=== PATIENT | female | born 1995 ===

== ENCOUNTER 2019-04-26 06:13 | Outpatient (CLI) | payer SELFPAY ==
[2019-04-26] MEDS ORDERED: LACTATED RINGERS 500 ML IV ONE (08:08)
[2019-04-26 08:38] VITALS: BP 116/72
== END 2019-04-26 08:10 | disposition home or self-care (01) ==
LOC: NM 06:13 → TRG 06:19 → NM 08:10
PROVIDERS: ATTEND Obstetrics & Gynecology
DX: O42.913 Preterm premature rupture of membranes, unspecified as to length of time between rupture and onset of labor, third trimester (principal); Z3A.32 32 weeks gestation of pregnancy

== ENCOUNTER 2019-06-19 01:52 | Inpatient (IN) | payer SELFPAY ==
[2019-06-19] MEDS ORDERED: LIDOCAINE (2%) 20 MG/1 ML VIAL 20 ML MDV INFILTRATI ONE (02:06)
[2019-06-19] MEDS ORDERED: TERBUTALINE 1 MG/1 ML INJ SUB-Q PRN (02:06)
[2019-06-19] MEDS ORDERED: ePHEDrine SULFATE 50 MG/1 ML INJ IV PRN (02:06)
[2019-06-19] MEDS ORDERED: AMPICILLIN/NS 2 GM/100 ML 2 GM/100 ML BAG IV ONE (02:06)
--- NOTE | 2019-06-19 02:21 | History and Physical Report ---
History of Present Illness Date of examination: 06/12/19 Date of admission: 06/19/2019 Chief complaint: Contractions History of present illness: 24 year old presents with contractions. Patient denies leaking of fluid or vaginal bleeding. Patient received care at [facility] and records are available. LMP: unknown. EDC 06/20/2019. significant for the following: anemia (supplemented with oral iron), elevated 1 hour sugar test (normal 3 hour OGTT), + GBS, ASCUS pap. labs are as follows: O+, antibody screen negative, rubella immune, hepatitis B surface antigen negative, HIV negative, RPR nonreactive, gonorrhea negative, chlamydia negative, quad screen negative, 1 hour sugar test 161, normal 3 hour OGTT, GBS positive. 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 denies: chlamydia, gonorrhea, hepatitis B, herpes, HIV, syphilis, trichomonas Family/Genetic History: none Social history: lives with family, full code. denies: smoking, alcohol abuse, prescription drug abuse, IV drug use - Obstetrical History Expected Date of Delivery: 06/20/19 Actual Gestation: 39 Week(s) 6 Day(s) : 3 Para: 1 Hx # Term Pregnancies: 1 Number of Pregnancies: 0 Spontaneous Abortions: 1 Induced : 0 Number of Living Children: 1 Medications and Allergies Allergies Allergy/AdvReac Type Severity Reaction Status Date / Time No Known Allergies Allergy Unverified 08/08/13 03:11 Home Medications Medication Instructions Recorded Confirmed Last Taken Type Mv-Mn/Iron/FA/Herbal/Digestive 1 tab PO DAILY 08/08/13 01/01/14 08/07/13 09:00 History [ One Tablet] Ferrous Sulfate [Feosol 325 MG tab] 325 mg PO BID #60 tablet 01/02/14 Unknown Rx HYDROcodone/APAP 5-325 [Donie 1 each PO Q6HR PRN #30 tablet 01/02/14 Unknown Rx 5/325] Ibuprofen [Advil 100 MG tab] 200 mg PO Q6H PRN #30 tablet 01/02/14 Unknown Rx Active Meds: Active Medications Ephedrine Sulfate (Ephedrine Sulfate) 10 mg IV Q2M PRN PRN Reason: Hypotension Fentanyl (Sublimaze) 100 mcg IV Q2H PRN PRN Reason: Labor Pain Oxytocin/Sodium Chloride (Pitocin/Ns 20 Unit/1000ml Drip) 20 units in 1,000 mls @ 125 mls/hr IV DIRECT DANILO Lactated Ringer's (Lactated Ringers) 1,000 mls @ 125 mls/hr IV DIRECT DANILO Ampicillin Sodium (Ampicillin/Ns 2 Gm/100 Ml) 2 gm in 100 mls @ 100 mls/hr IV ONCE ONE; Protocol Stop: 06/19/19 03:05 Ampicillin Sodium (Ampicillin/Ns 1 Gm/50 Ml) 1 gm in 50 mls @ 100 mls/hr IV Q4HR DANILO; Protocol Terbutaline Sulfate (Brethine) 0.25 mg SUB-Q ONCE PRN PRN Reason: Hyperstimulation/Hypertonicity Review of Systems All systems: negative (contractions) - Physical Exam Abdomen: Positive: normal appearance, soft. Negative: distention, tenderness, guarding, rigidity Genitourinary (Female): Positive: normal external genitalia, normal perenium. Negative: perineal/vulvar lesions (no lesions seen on careful exam with bright light upon admission) Vagina: Positive: normal moisture Uterus: Positive: other (gravid). Negative: tender Anus/Rectum: Positive: normal perianal skin Extremities: Positive: normal. Negative: tenderness, edema - Obstetrical FHR: category 1 Uterine Contraction Monitor Mode: External Cervical Dilatation: 5 Cervical Effacement Percentage: 70 station: -3 Uterine Contraction Pattern: Regular Uterine Contraction Intensity: Moderate Results Result Diagrams: 06/19/19 02:00 All other labs normal. Assessment and Plan A: at 39 weeks, 6 days. Active labor. GBS positive. P: Admit. EFM. GBS prophylaxis.
[2019-06-19 02:28] LABS: Hemoglobin 11.6 gm/dl (10.1-14.3); Mean Corpuscular HGB Conc 33 % (30-34); Mean Corpuscular Volume 70 fl (79-97); Platelet Count 204 K/mm3 (140-440); Red Cell Distribution Width 15.4 % (13.2-15.2)
[2019-06-19] MEDS ORDERED: OXYTOCIN 20 UNIT/1000ML DRIP 20 UNITS/1,000 ML BAG IV SCH (03:00)
[2019-06-19] MEDS: LACTATED RINGERS 1,000 ML IV SCH ×2 (03:20→10:38)
[2019-06-19] MEDS: fentaNYL 100 MCG/2 ML INJ IV PRN ×3 (05:05→09:37)
[2019-06-19] MEDS: AMPICILLIN/NS 1 GM/50 ML 1 GM/50 ML BAG IV SCH ×2 (06:50→11:23)
--- NOTE | 2019-06-19 08:28 | Event Note ---
Date: 06/19/19 SVE /-3. Category 1 heart rate tracing.
[2019-06-19] MEDS ORDERED: LIDOCAINE MPF (2%) 20 MG/1 ML VIAL 5 ML ONE (11:21)
[2019-06-19] MEDS ORDERED: MINERAL OIL 30 ML ORAL LIQD ONE (11:22)
--- NOTE | 2019-06-19 13:20 | Event Note ---
<KENTRELL SANDRA - Last Filed: 06/19/19 13:50> Date: 06/19/19 Cervix is now 9.5 cm and head is -1 to -2 station. Still OP position. FHR with normal baseline and moderate variability. Variable FHR decelerations with rapid return to baseline. Contractions every 2-3 minutes, moderate to strong. Uterus palpates soft between contractions. Consulted with Dr. Smith re: patient's slow progress in labor and FHR tracing/variable decels and cervical exam/ station at 13:18 and again at 13:29; requested physician come in due to FHR tracing and slow labor progress. Pt. continues to refuse epidural. <GABRIELLA SMITH - Last Filed: 06/19/19 14:35> I was told that the variability was good and there was good recovery to the variable decels. As a result, I advised to hold off on AROM until FHT was more stable. PT ended up delivering soon after anyway.
[2019-06-19] MEDS ORDERED: WITCH HAZEL/ GLYCERIN PAD TP PRN (14:15)
[2019-06-19] MEDS ORDERED: MAGNESIUM HYDROXIDE (MOM) ORAL LIQD UDC PO PRN (14:15)
[2019-06-19] MEDS ORDERED: LANOLIN/ZINC/DIMETHICONE (LANSINOH) 7 GM TP PRN (14:15)
[2019-06-19] MEDS ORDERED: diphenhydrAMINE 25 MG CAP PO PRN (14:15)
[2019-06-19] MEDS ORDERED: HYDROcodone/ACETAMINOPHEN 10-325MG TAB ONE (14:16)
--- NOTE | 2019-06-19 15:38 | Procedure Note ---
OB Delivery Note - Delivery Date of Delivery: 06/19/19 Surgeon: KENTRELL SANDRA Estimated blood loss: 200cc - Vaginal Delivery presentation: vertex Delivery position: OA Intrapartum events: mult.variable deceleratio Delivery induction: none Delivery monitor: external FHT, external uterine Route of delivery: Delivery placenta: spontaneous Delivery cord: 3 umbilical vessels Episiotomy: none Delivery laceration: none Anesthesia: none Delivery comments: at 13:53 of liveborn female infant weighing 3591 grams over intact perineum with apgars of 8/9. Nuchal cord, arm cord, body cord. Baby placed skin to skin with mom immediately after . Spontaneous cry and respirations. Baby bulb suctioned and dried. 3 vessel cord double clamped and cut. Spontaneous delivery of intact placenta and membranes at 13:58. Pitocin to IV fluids after delivery of placenta. Fundus firm and midline. No lacerations noted. Vaginal sweep negative. Sponge count correct.
[2019-06-19] MEDS: IBUPROFEN 600 MG TAB PO SCH (16:58)
[2019-06-19] MEDS: HYDROcodone/ACETAMINOPHEN 5-325 MG TAB PO PRN (21:24)
[2019-06-20] MEDS: IBUPROFEN 600 MG TAB PO SCH ×5 (00:24→21:42)
[2019-06-20 03:00] LABS: Hematocrit 31.1 % (30.3-42.9); Hemoglobin 10.1 gm/dl (10.1-14.3)
--- NOTE | 2019-06-20 10:31 | Progress Note ---
Assessment and Plan A: day 1 S/P . Anemia. P: Supplement with iron. Anticipate discharge tomorrow if patient continues to do well. Subjective - Subjective Date of service: 06/20/19 Principal diagnosis: day 1 S/P Interval history: day 1 S/P . Pt. reports small amount of lochia. Patient is voiding without difficulty. Patient reports: appetite normal, voiding normally, pain well controlled, flatus, ambulating normally, no dizzy ambulation, no nauseated [place]: doing well Objective - Vital Signs Latest vital signs: Vital Signs Temp Pulse Resp BP Pulse Ox 06/20/19 07:53 97.4 F L 75 18 102/43 98 06/20/19 01:24 18 06/20/19 01:21 97.2 F L 79 18 97/55 97 06/20/19 00:24 18 06/19/19 22:24 18 06/19/19 21:24 18 06/19/19 20:56 97.9 F 70 18 95/53 99 06/19/19 16:16 76 100/54 98 06/19/19 14:20 82 104/55 06/19/19 14:19 97.9 F 18 06/19/19 14:15 18 06/19/19 13:03 128 H 99 06/19/19 12:58 98 H 98 06/19/19 12:55 68 91 06/19/19 12:53 86 97 06/19/19 12:48 121 H 99 06/19/19 12:42 101 H 100 06/19/19 12:37 110 H 100 06/19/19 12:32 98 H 100 06/19/19 12:27 99 H 100 06/19/19 12:22 101 H 100 06/19/19 12:17 97 H 100 06/19/19 12:12 106 H 100 06/19/19 12:07 102 H 100 06/19/19 12:02 99 H 100 06/19/19 11:58 97.9 F 18 06/19/19 11:57 99 H 100 06/19/19 11:52 106 H 100 06/19/19 11:47 105 H 100 06/19/19 11:42 95 H 99 06/19/19 11:37 106 H 100 06/19/19 11:32 105 H 98 06/19/19 11:27 104 H 100 06/19/19 11:22 99 H 99 06/19/19 11:17 99 H 92 06/19/19 11:12 99 H 99 06/19/19 11:07 90 99 06/19/19 11:02 105 H 99 06/19/19 10:57 94 H 100 06/19/19 10:55 96 H 92 06/19/19 10:52 87 100 06/19/19 10:47 84 98 06/19/19 10:42 101 H 96 06/19/19 10:37 95 H 18 92 06/19/19 10:32 117 H 99 Intake and Output 06/19/19 06/20/19 06/20/19 23:59 07:59 15:59 Intake Total 600 Output Total 600 1200 Balance -600 -600 Intake: Oral 600 Output: Urine 600 1200 Void 600 1200 Other: Total, Intake Amount 120 Total, Output Amount 600 500 - Exam Cardiovascular: Present: Regular rate, Normal S1, Normal S2 Lungs: Present: Clear to auscultation Abdomen: Present: normal appearance, soft. Absent: distention, tenderness, guarding, rigidity Uterus: Present: normal, firm, fundal height below umbilicus. Absent: bogginess, tenderness Extremities: Present: normal. Absent: tenderness
[2019-06-20] MEDS: HYDROcodone/ACETAMINOPHEN 5-325 MG TAB PO PRN ×2 (12:22→20:19)
[2019-06-20] MEDS: FERROUS SULFATE 325 MG TAB PO SCH (21:38)
[2019-06-21] MEDS: HYDROcodone/ACETAMINOPHEN 5-325 MG TAB PO PRN (06:05)
[2019-06-21] MEDS: IBUPROFEN 600 MG TAB PO SCH (06:09)
[2019-06-21] MEDS ORDERED: SIMETHICONE 80 MG CHEW TAB PO PRN (06:56)
--- NOTE | 2019-06-21 06:58 | Event Note ---
Date: 06/21/19 Pt. C/O gas and constipation. Orders for Simethicone and Colace put in. Advised pt. to drink warm liquids this morning and ambulate more today. Pt. declines to be discharged today.
[2019-06-21] MEDS ORDERED: DOCUSATE SODIUM 100 MG CAP PO SCH (10:00)
[2019-06-21] MEDS: FERROUS SULFATE 325 MG TAB PO SCH (10:28)
--- NOTE | 2019-06-21 10:33 | Progress Note ---
Assessment and Plan - Patient Problems (1) Status post normal vaginal delivery Current Visit: Yes Status: Acute Plan to address problem: PPD 2 - stable Discharge to home today Follow-up at [facility] as needed or in 6 weeks for exam (2) Single live Current Visit: Yes Status: Acute Subjective - Subjective Date of service: 06/21/19 Principal diagnosis: PPD #3; s/p Interval history: see RRT - H&P, Event Notes, OB Delivery Procedure Note and PP/AGRICULTURAL SALES REPRESENTATIVE Progress Note Patient reports: appetite normal, voiding normally, pain well controlled, flatus, ambulating normally, no dizzy ambulation : doing well, nursing well Objective - Vital Signs Latest vital signs: Vital Signs Temp Pulse Resp BP Pulse Ox 06/21/19 08:00 97.7 F 73 18 101/62 97 06/21/19 07:05 18 06/21/19 06:05 18 06/20/19 23:42 98.3 F 74 18 97/57 95 06/20/19 22:38 18 06/20/19 21:38 18 06/20/19 21:19 18 06/20/19 20:19 18 06/20/19 16:34 97.3 F L 80 18 116/58 99 06/20/19 12:28 97.3 F L 80 18 102/45 93 Intake and Output 06/20/19 06/21/19 06/21/19 23:59 07:59 15:59 Intake Total 240 360 120 Balance 240 360 120 Intake: Oral 240 360 120 Other: Total, Intake Amount 240 240 120 # Voids Void 1 1 - Exam Cardiovascular: Present: Regular rate Lungs: Present: Clear to auscultation Abdomen: Present: normal appearance, soft Vulva: both: normal Uterus: Present: normal, firm, fundal height at umbilicus Extremities: Present: normal Comments: small lochia
--- NOTE | 2019-06-21 10:37 | Discharge Summary ---
Providers - Providers Date of Admission: 06/19/19 02:06 Date of discharge: 06/21/19 Attending physician: CED LOPEZ MD 06/21/19 08:00 Consult to Mental Health [CONS] Routine Reason For Exam: Scored 11 on Depression Scale Primary care physician: CED LOPEZ MD Hospitalization Reason for admission: active labor, IUP at term Delivery: Episiotomy: none Laceration: none Other procedures: none complications: none Discharge diagnosis: IUP at term delivered baby: female Condition at discharge: Stable Disposition: DC-01 TO HOME OR SELFCARE - Discharge Diagnoses (1) Status post normal vaginal delivery Status: Acute (2) Single live Status: Acute (3) depression Status: Acute Comment: Patient denies suicidal or homicidal ideation Advised patient to follow-up with a Behavioral Health Specialist as soon as possible Plan - Discharge Medications Prescriptions: Ibuprofen [Motrin 600 MG tab] 600 mg PO Q6H #30 tablet - Provider Discharge Summary Activity: routine, no sex for 6 weeks, no heavy lifting 4 weeks, no strenuous exercise Diet: routine Instructions: routine Additional instructions: [] Smoking cessation referral if applicable(refer to patient education folder for contact #) [] Refer to [facility]'s [facility] Booklet Call your doctor immediately for: * Fever > 100.5 * Heavy vaginal bleeding ( >1 pad per hour) * Severe persistent headache * Shortness of breath * Reddened, hot, painful area to leg or breast * Drainage or odor from incision. * Keep incision clean and dry at all times and follow doctor's instructions regarding bathing/showering - Follow up plan Follow up: CED LOPEZ MD [Primary Care Provider] - 6 Weeks (Follow-up at [facility] as needed or in 6 weeks for exam) Forms: [facility] Discharge Summary
--- NOTE | 2019-06-21 13:07 | Consultation ---
History of Present Illness - Reason for Consult Reason for consult: <HE Requesting physician: CED LOPEZ - Chief Complaint Chief complaint: Post demond Depression score of 11 - History of Present Psychiatric Illness HPI Patient is a 24-year-old female with no significant past psychiatric history presented to the [facility] presented for psych evaluation after scoring 11 on depression scale. Patient describes his mood today is good and she has been happy since delivery though she does feel to be tired, patient reports sleep and appetite has been good that she is glad she has her mom here who has been helping to support with the care of the new baby. Patient denies feeling depressed and acknowledged to seek help if she does feel sad or depressed. PAST PSYCHIATRIC HISTORY: Diagnoses: None reported Suicide attempts or Self-harm behavior: None reported Prior psychiatric hospitalizations: None reported Substance Abuse history: None reported Previous psychiatric medications tried: None reported Outpatient treatment: None reported PAST MEDICAL HISTORY: Family Psychiatric History None reported or documented SOCIAL HISTORY Marital Status: Living Arrangements: Lives with family Access to guns/weapons: None reported Education: None reported History of Abuse: None reported Legal History: None reported REVIEW OF SYSTEMS Constitutional: Negative for weight loss ENT: Negative for stridor Respiratory: Negative for cough or hemoptysis All other systems reviewed and are negative MENTAL STATUS EXAMINATION General Appearance and Behavior: Age appropriate, good hygiene, wearing appropriate clothes, lying in bed, good cooperative/uncooperative with questioning and polite Cooperation: Participating/engaged Psychomotor Behavior: unremarkable and within normal limits Mood: Good Affect and affective range: Congruent with mood Thought Process: Fluent/Logical Thought Content: Within reality Speech: Normal volume Intellectual Functioning: Average Suicidal Ideation: Denies SI Homicidal Ideation: Denies HI Impulse Control: Impaired Insight and Judgment: Normal insight and judgment Memory: Normal Attention: Normal Orientation: Alert Assessment and Plan - Psychiatric problem (1) No abnormality detected on mental health assessment Current Visit: Yes Status: Acute RECOMMENDATIONS Patient does not meet criteria for further mental health evaluation or medication MEDICATIONS: None indicated Risks, benefits and alternatives of medications discussed with the patient, questions answered and consent obtained from patient. PSYCHOTHERAPY: Supportive psychotherapy provided MEDICAL: Per primary team DELIRIUM PRECAUTIONS: Please re-orient patient frequently, keep lights on during the day, and minimize benzodiazepines and opiates as these medications could worsen patient's confusion. PRODUCTION CONTROL TECHNOLOGIST: none DISPOSITION: Per primary team; no indication for acute inpatient psychiatric hospitalization at this time LEGAL STATUS: Voluntary FOLLOW-UP: Will sign off Thank you for the consult. Please contact with any questions and/or concerns. Medications and Allergies Allergies Allergy/AdvReac Type Severity Reaction Status Date / Time No Known Allergies Allergy Unverified 08/08/13 03:11 Home Medications Medication Instructions Recorded Confirmed Last Taken Type Ibuprofen [Motrin 600 MG tab] 600 mg PO Q6H #30 tablet 06/21/19 Unknown Rx Active Meds: Active Medications Acetaminophen/Hydrocodone Bitart ([place] 5/325) 2 each PO Q6H PRN PRN Reason: Pain, Moderate (4-6) Last Admin: 06/21/19 06:05 Dose: 2 each Documented by: Bisacodyl (Dulcolax) 10 mg NM BID PRN PRN Reason: Constipation Diphenhydramine HCl (Benadryl) 25 mg PO Q6H PRN PRN Reason: Itching Docusate Sodium (Colace) 100 mg PO BID [facility] Last Admin: 06/21/19 10:27 Dose: 100 mg Documented by: Ferrous Sulfate (Feosol) 325 mg PO BID [facility] Last Admin: 06/21/19 10:28 Dose: 325 mg Documented by: Ibuprofen (Ibuprofen) 600 mg PO Q6H [facility] Last Admin: 06/21/19 06:09 Dose: Not Given Documented by: Magnesium Hydroxide (Milk Of Magnesia) 30 ml PO HS PRN PRN Reason: Constipation Multi-Ingredient Ointment (Lansinoh) 1 applic TP PRN PRN PRN Reason: Sore Nipples Last Admin: 06/20/19 12:23 Dose: 1 applic Documented by: Simethicone (Mylicon) 80 mg PO Q6H PRN PRN Reason: Gas pain Witch Char/Glycerin (Tucks Pad) 1 each TP PRN PRN PRN Reason: Hemorrhoid/cleansing/soothing Mental Status Exam - Vital signs Last Vital Signs Temp 97.7 F 06/21/19 08:00 Pulse 73 06/21/19 08:00 Resp 18 06/21/19 08:00 BP 101/62 06/21/19 08:00 Pulse Ox 97 06/21/19 08:00 Results Result Diagrams: 06/20/19 02:33 All other labs normal. Assessment and Plan - Psychiatric problem (1) No abnormality detected on mental health assessment Current Visit: Yes Status: Acute
[2019-06-21 14:05] VITALS: BP 120/76
== END 2019-06-21 13:45 | disposition home or self-care (01) | DRG 807 ==
LOC: TRG 01:52 → APU 01:59 → TRG 02:06 → LD 02:06 → OB 16:19
PROVIDERS: ADMIT Obstetrics & Gynecology; ATTEND Obstetrics & Gynecology
PROC: 10E0XZZ Delivery of Products of Conception, External Approach (ICD-10-PCS; principal; 2019-06-19)
DX: O76 Abnormality in fetal heart rate and rhythm complicating labor and delivery (principal); Z37.0 Single live birth; O99.824 Streptococcus B carrier state complicating childbirth; O99.344 Other mental disorders complicating childbirth; F32.9 Major depressive disorder, single episode, unspecified; Z3A.39 39 weeks gestation of pregnancy; Z23 Encounter for immunization
CPT/HCPCS: 36415; 83036; 85014; 85018; 85027; 86592; 86706; 86803; 86850; 86900; 86901; 87806; G0378; A6250; J0290; J2590; J3010; J7120

== ENCOUNTER 2020-06-09 21:19 | Emergency (ER) | payer MEDICAID, OTHER ==
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
[2020-06-09 22:53] VITALS: BP 154/96
[2020-06-09 23:33] LABS: Basophils % (Auto) 0.3 % (0.0-1.8); Eosinophils # (Auto) 0.1 K/mm3 (0.0-0.4); Eosinophils % (Auto) 1.3 % (0.0-4.3); Hematocrit 37.9 % (30.3-42.9); Hemoglobin 12.7 gm/dl (10.1-14.3); Lymphocytes % (Auto) 27.1 % (13.4-35.0); Mean Corpuscular HGB Conc 34 % (30-34); Mean Corpuscular Volume 77 fl (79-97); Monocytes # (Auto) 0.6 K/mm3 (0.0-0.8); Monocytes % (Auto) 5.3 % (0.0-7.3); Platelet Count 204 K/mm3 (140-440); Red Blood Count 4.91 M/mm3 (3.65-5.03); Red Cell Distribution Width 14.4 % (13.2-15.2)
[2020-06-09 23:56] LABS: Alanine Aminotransferase 9 units/L (7-56); Albumin 4.5 g/dL (3.9-5); Blood Urea Nitrogen 12 mg/dL (7-17); Calcium 9.4 mg/dL (8.4-10.2); Hemolysis Index 1
[2020-06-10 00:01] LABS: BUN/Creatinine Ratio 17
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
== END 2020-06-10 02:38 | disposition home or self-care (01) ==
LOC: ED 21:19
DX: O9A.211 Injury, poisoning and certain other consequences of external causes complicating pregnancy, first trimester (principal); O26.891 Other specified pregnancy related conditions, first trimester; R10.30 Lower abdominal pain, unspecified; Z3A.01 Less than 8 weeks gestation of pregnancy; Z79.1 Long term (current) use of non-steroidal anti-inflammatories (NSAID); V49.49XA Driver injured in collision with other motor vehicles in traffic accident, initial encounter; Y93.89 Activity, other specified; Y92.410 Unspecified street and highway as the place of occurrence of the external cause; Y99.8 Other external cause status
CPT/HCPCS: 36415; 76801; 76802; 80053; 84702; 85025; 86900; 86901